=== PATIENT | male | born 1965 | race Hispanic/Latino ===

== ENCOUNTER 2018-09-12 16:23 | Outpatient (CLI) | payer OTHER ==
--- NOTE | 2018-09-12 16:50 | RAD ---
FRadiograph cervical spine 3 views: HISTORY: 53-year-old male with nontraumatic acute cervicalgia COMPARISON: None FINDINGS: Vertebral body heights are maintained. Alignment is normal. No high-grade facet DJD. The C2-3, C3-4, and C4-5 disc spaces are maintained. Mild to moderate disc space narrowing at C5-6. Mild disc space n arrowing at C6-7. C7-T1 junction obscured by shoulders on lateral view. Moderately large endplate ost eophytes protrude anteriorly into the prevertebral space at C4-5, C5-6, and C6-7. IMPRESSION: Moderate discogenic degenerative changes at mid and lower cervical spine.
== END 2018-09-12 16:24 | disposition home or self-care (01) ==
LOC: SCSRAD 16:23
PROVIDERS: ATTEND Family Medicine
DX: M54.2 Cervicalgia (principal); M50.320 Other cervical disc degeneration, mid-cervical region, unspecified level
CPT/HCPCS: 72040